=== PATIENT | female | born 1955 | race Caucasian/White ===

== ENCOUNTER → 2019-02-22 | Day surgery (SDC) | payer MEDICARE, BC ==
[~2019-02-22] MED LIST: Lactated Ringers 1,000 ML IV SCH; Propofol 200 MG/20 ML SDV IV ONE
--- NOTE | 2019-02-22 14:40 | OR ---
DATE OF OPERATION: 02/22/2019 PREOPERATIVE DIAGNOSIS: POSITIVE COLOGUARD. POSTOPERATIVE DIAGNOSIS: 1. SIGMOID DIVERTICULOSIS. 2. SESSILE POLYP, PROXIMAL ASCENDING COLON. 3. EXTREMELY POOR BOWEL PREP. SURGEON: Joon Villanueva MD PROCEDURE: FULL-LENGTH COLONOSCOPY WITH COLD FORCEPS POLYP REMOVAL X1. ANESTHESIA: MAC via ER RN. COMPLICATIONS: None. SPECIMEN: 3 to 4 mm sessile polyp, proximal ascending colon. FINDINGS: 1. Full-length colonoscopy. 2. Extremely poor prep. 3. [id number] sigmoid diverticulosis. 4. 3 to 4 mm sessile polyp, proximal ascending colon. RECOMMENDATIONS: Followup colonoscopy at a minimum of 5 years. Given the patient's positive Cologuard and poor prep, consideration for closer followup per the patient's provider. INDICATIONS: The patient has had prior colonoscopy in the past. Last one was 10 years ago. She came in to see her regular provider, Dr. Padilla, and positive Cologuard was found. He sent her for diagnostic colonoscopy. DESCRIPTION OF PROCEDURE: The patient was prepped and draped, placed in the left lateral decubitus position. The lubricated Olympus colonoscope was inserted and ultimately and easily advanced to the cecum. The patient had an extremely poor prep. We irrigated for an extended period of time in the right colon and tried to clean out as best as possible. The cecum was able to be cleaned out reasonably well. We were able to intubate into the terminal ileum, which was benign. The cecum and the proximal ascending colon were visualized easily. The patient did have 1 small flat sessile polyp approximately 3 mm removed with cold forceps biopsy x3. The distal ascending colon and hepatic flexure were extremely hard to see, lot of thick particulate stool, and difficult to irrigate. Most of the transverse colon was visualized and appeared unremarkable. The patient does have diverticular disease throughout the sigmoid and in the rectosigmoid junction. The descending colon was grossly benign. Lot of stool present in the left colon. Many areas were hard to visualize and certainly possible to miss smaller lesions. No signs of any gross polyps, masses, ulcerations, or bleeding sites in the left colon. No vascular abnormalities or signs of colitis. The rectal vault appeared benign. Retroflexion of the scope in the rectum was accomplished, and the perianal region was unremarkable. Air was then suctioned from the colon and scope removed without complication. MJP/MODL /[id number] cc: Fito Padilla MD [address] [id number]
== END ==
LOC: CC.SDS 07:02
PROVIDERS: ATTEND Family Medicine
DX: K63.5 Polyp of colon (principal); K57.30 Diverticulosis of large intestine without perforation or abscess without bleeding; E78.5 Hyperlipidemia, unspecified; M19.90 Unspecified osteoarthritis, unspecified site; F32.9 Major depressive disorder, single episode, unspecified; M25.562 Pain in left knee; G89.29 Other chronic pain; R35.1 Nocturia; R92.8 Other abnormal and inconclusive findings on diagnostic imaging of breast; Z88.2 Allergy status to sulfonamides; Z79.890 Hormone replacement therapy; Z79.899 Other long term (current) drug therapy; Z00.00 Encounter for general adult medical examination without abnormal findings; Z79.01 Long term (current) use of anticoagulants
CPT/HCPCS: 00812; J2704; J7120